=== PATIENT | male | born 1985 | race Caucasian/White ===

== ENCOUNTER 2019-07-29 17:33 | Emergency (ER) | payer SELFPAY ==
[~2019-07-29] VITALS: Ht 180.3 cm; Wt 120.2 kg
[2019-07-29 17:41] VITALS: BP 121/91
[2019-07-29] MEDS ORDERED: methylPREDNISolone SOD SUCC 125 MG/2 ML VL ONE (17:45)
[2019-07-29] MEDS ORDERED: methylPREDNISolone SOD SUCC 125 MG/2 ML VL IV ONE ×2 (18:00→18:30)
== END 2019-07-29 20:46 | disposition home or self-care (01) ==
LOC: ER 17:33
DX: T78.40XA Allergy, unspecified, initial encounter (principal); L50.9 Urticaria, unspecified; G89.29 Other chronic pain; M54.9 Dorsalgia, unspecified; Z90.89 Acquired absence of other organs; X58.XXXA Exposure to other specified factors, initial encounter
CPT/HCPCS: 96372; 99283; J2930